=== PATIENT | female | born 1985 | race Caucasian/White ===

== ENCOUNTER 2019-04-23 17:00 | Emergency (ER) | payer OTHER ==
[2019-04-23 17:09] VITALS: BP 109/73; PULSE 82; TEMP 98.4; BMI 27.4
--- NOTE | 2019-04-23 19:46 | PDOC ---
History of Present Illness - General Chief Complaint: Pain Stated Complaint: DISCOMFORT IN GROIN AREA Time Seen by Provider: 04/23/19 17:44 History Source: Patient Exam Limitations: No Limitations - History of Present Illness Initial Comments: 04/23/19 19:40 34 year old female with no significant medical or surgical history presents with reports that she has swelling of her right groin node x 2-3 months. Denies fever or chills, or vaginal complaints. Patient states seen by primary physician for the same had lab test done with negative results. States she shaves her suprapubic area. Quality: reports: mild Abdominal Pain Onset Location: reports: unknown Pain Radiation: reports: no radiation Activities at Onset: reports: none Aggravating Factors: improves with: None Alleviating Factors: improves with: None Past History - Travel Traveled outside of the country in the last 30 days: No Close contact w/someone who was outside of country & ill: No - Past Medical History Allergies/Adverse Reactions: Allergies Allergy/AdvReac Type Severity Reaction Status Date / Time No Known Allergies Allergy Verified 04/23/19 17:05 Home Medications: Ambulatory Orders Vit 93/Iron Fum/Folic [ Formula Tablet] 1 each PO DAILY Ibuprofen [Motrin -] 600 mg PO QID PRN #28 tablet 09/23/16 Ibuprofen 600 mg PO TID #20 tablet 04/23/19 Asthma: No Cancer: No Cardiac Disorders: No Diabetes: No HTN: No Seizures: No Thyroid Disease: No - Reproductive History (#): 0 Para: 0 Cervical CA: No Dysfunctional Uterine Bleeding: No Ectopic : No Endometrial CA: No Polycystic Ovaries: No Tubal Ligation: No - Suicide/Smoking/Psychosocial Hx Smoking History: Never smoked Have you smoked in the past 12 months: No Hx Alcohol Use: No Drug/Substance Use Hx: No Substance Use Type: None Hx Substance Use Treatment: No Review of Systems - Review of Systems Able to Perform ROS?: Yes Is the patient limited Egyptian proficient: No Constitutional: No: Chills HEENTM: No: Nose Pain, Nose Congestion, Throat Pain Respiratory: No: Orthopnea, Shortness of Breath, Wheezing Cardiac (ROS): No: Chest Pain, Lightheadedness, Palpitations ABD/GI: No: Difficulty Swallowing, Nausea, Poor Appetite, Poor Fluid Intake, Abdominal cramping : Yes: Other (groin node ). No: Burning, Dysuria, Incontinence, Pain, Urgency Musculoskeletal: No: Back Pain, Joint Pain, Muscle Weakness Integumentary: No: Bruising, Erythema *Physical Exam - Vital Signs Last Vital Signs Temp Pulse Resp BP Pulse Ox 98.4 F 82 16 109/73 100 04/23/19 17:06 04/23/19 17:06 04/23/19 17:06 04/23/19 17:06 04/23/19 17:06 - Physical Exam General Appearance: Yes: Nourished, Appropriately Dressed HEENT: positive: EOMI, ABBEY, TMs Normal, Pharynx Normal Neck: positive: Supple. negative: Lymphadenopathy (R), Lymphadenopathy (L) Respiratory/Chest: positive: Lungs Clear, Normal Breath Sounds Cardiovascular: positive: Regular Rhythm, Regular Rate Extremity: positive: Normal Capillary Refill Neurologic: positive: data modeling specialist II-XII NML intact, Fully Oriented, Alert Medical Decision Making - Medical Decision Making 04/23/19 19:46 34 year old female with no significant medical or surgical history presents with reports that she has swelling of her right groin node x 2-3 months 04/23/19 19:52 Plan rx: ibuprofen q6h prn referred back to pmd for follow up *DC/Admit/Observation/Transfer Diagnosis at time of Disposition: Rt groin pain - Discharge Dispostion Disposition: HOME Condition at time of disposition: Good Decision to Admit order: No - Prescriptions Prescriptions: Ibuprofen 600 mg PO TID #20 tablet - Referrals Referrals: Francisca Poole MD [Primary Care Provider] - - Patient Instructions Additional Instructions: Take ibuprofen every 6 hours for pain as needed Call primary physician or edi architect for follow up appointment - Post Discharge Activity Forms/Work/School Notes: Back to Work
== END 2019-04-23 19:55 | disposition home or self-care (01) ==
LOC: JER 17:00
DX: R10.30 Lower abdominal pain, unspecified (principal)
CPT/HCPCS: 99281-25

== ENCOUNTER 2023-12-09 10:12 | Emergency (ER) | payer OTHER ==
[2023-12-09 10:25] VITALS: BP 127/72; PULSE 98; RESP 18; TEMP 98; BMI 30.4
[2023-12-09 11:14] LABS: EPI CELLS 24 /uL (0-25.1); HYALINE CASTS 2 /uL (0-3.1); URINE APPEARANCE CLEAR; URINE BACTERIA 568 /uL (0-1359); URINE BILIRUBIN NEGATIVE (NEGATIVE); URINE COLOR YELLOW; URINE GLUCOSE (UA) NEGATIVE (NEGATIVE); URINE KETONE NEGATIVE (NEGATIVE); URINE LEUK ESTERASE TRACE (NEGATIVE); URINE NITRITE NEGATIVE (NEGATIVE); URINE PROTEIN NEGATIVE (NEGATIVE); URINE RBC 92 /uL (0-23.9); URINE UROBILINOGEN 0.2 mg/dL (0.2-1.0); URINE WBC 15 /uL (0-25.8)
[2023-12-09 11:15] LABS: HCG,QUALITATIVE URINE Negative
[2023-12-09] MEDS ORDERED: KETOROLAC TROMETHAMINE 30 MG/1 ML VIAL ONE (11:44)
[2023-12-09] MEDS: KETOROLAC TROMETHAMINE 30 MG/1 ML VIAL IM ONE (11:47)
== END 2023-12-09 13:14 | disposition home or self-care (01) ==
LOC: JER 10:12
PROC: 3E0233Z Introduction of Anti-inflammatory into Muscle, Percutaneous Approach (ICD-10-PCS; principal; 2023-12-09)
DX: N64.4 Mastodynia (principal)
CPT/HCPCS: 76642-TC-LT; 81003; 84703; 87086; 99284-25